=== PATIENT | male | born 1935 | race Caucasian/White ===

== ENCOUNTER → 2017-02-18 | Outpatient (CLI) | payer MEDICARE ==
[2017-02-18 10:48] LABS: EPI LOT# 5695218
[2017-02-18 11:08] LABS: HCT (PFA) 47.9 % (39.2-51.8); PLATELET (PFA) 167 10^3/uL (130-400)
[2017-02-18 11:32] LABS: EPI CARTRIDGE 77 SECONDS (72-193)
== END | disposition home or self-care (01) ==
LOC: LAB 10:44
PROVIDERS: ATTEND Neurological Surgery
DX: G20 Parkinson's disease (principal)
CPT/HCPCS: 36415; 85014; 85049; 85576

== ENCOUNTER 2017-02-24 08:02 | Day surgery (SDC) | payer MEDICARE ==
[~2017-02-24] VITALS: Ht 182.9 cm; Wt 80.0 kg
[2017-02-24] MEDS ORDERED: CLON-364 PO (08:30)
[2017-02-24] MEDS ORDERED: OMEP-110 PO (08:30)
[2017-02-24] MEDS ORDERED: APIX2.5T PO (08:30)
[2017-02-24] MEDS ORDERED: SOLI10TA PO (08:30)
[2017-02-24] MEDS ORDERED: LISI-170 PO (08:30)
[2017-02-24] MEDS ORDERED: CARB1TAB47 PO (08:30)
[2017-02-24] MEDS ORDERED: LACTATED RINGERS 1,000 ML IV SCH (08:55)
[2017-02-24 08:57] VITALS: BP 138/86
[2017-02-24] MEDS ORDERED: FENTANYL PF 250 MCG/5ML ONE (09:32)
[2017-02-24] MEDS ORDERED: BACITRACIN 50,000 UNIT ONE (10:13)
[2017-02-24] MEDS ORDERED: BUPIVACAINE/PF-EPI 0.25% 1:200K ONE (10:13)
[2017-02-24] MEDS ORDERED: BACITRACIN OINT 500U/GM, 15 GM ONE (10:13)
[2017-02-24] MEDS ORDERED: DEXAMETHASONE 4 MG/ML, 1ML ONE (10:54)
[2017-02-24] MEDS ORDERED: ONDANSETRON 2MG/ML, 2ML ONE (10:54)
[2017-02-24] MEDS ORDERED: PROPOFOL 10 MG/ML, 20ML ONE (10:54)
[2017-02-24] MEDS ORDERED: CEFAZOLIN 1,000 MG ONE (10:54)
[2017-02-24] MEDS ORDERED: HYDROcodone/APAP 7.5-325MG/15ML UDC PO PRN (11:30)
[2017-02-24] MEDS ORDERED: OXYcodone 5 MG/5 ML ORAL.SOL UDC PO PRN (11:30)
[2017-02-24] MEDS ORDERED: hydrALAzine 20 MG/ML, 1ML IV PRN (11:30)
[2017-02-24] MEDS ORDERED: FENTANYL PF 100 MCG/2ML IV PRN (11:30)
[2017-02-24] MEDS ORDERED: HYDROmorphone 1 MG/ML, 1ML IV PRN (11:30)
[2017-02-24] MEDS ORDERED: EPHEDRINE 50 MG/ML, 1ML IVPush PRN (11:30)
[2017-02-24] MEDS ORDERED: LABETALOL 5MG/ML, 20ML IV PRN (11:30)
[2017-02-24] MEDS ORDERED: ONDANSETRON 2MG/ML, 2ML IVPush PRN (11:30)
[2017-02-24] MEDS ORDERED: OXYcodone 5 MG/5 ML ORAL.SOL UDC ONE (11:42)
[2017-02-24] MEDS ORDERED: hydrALAzine 20 MG/ML, 1ML ONE (12:45)
== END 2017-02-24 13:55 | disposition home or self-care (01) ==
LOC: OUT 08:02
PROVIDERS: ATTEND Neurological Surgery
DX: Z45.42 Encounter for adjustment and management of neurostimulator (principal); G20 Parkinson's disease; I10 Essential (primary) hypertension; I48.91 Unspecified atrial fibrillation; Z85.46 Personal history of malignant neoplasm of prostate; Z87.891 Personal history of nicotine dependence; Z72.89 Other problems related to lifestyle; H35.30 Unspecified macular degeneration
CPT/HCPCS: 61886; C1767; J0690; J1100; J2405; J2704; J3010; J7120